=== PATIENT | male | born 1960 | race Caucasian/White ===

== ENCOUNTER 2016-09-11 10:19 | Emergency (ER) | payer BC ==
[~2016-09-11] VITALS: Ht 175.3 cm; Wt 86.4 kg
[~2016-09-11 10:19] MED LIST: IMODIUM 2MG CAPS2 MG PO; PRILOSEC 20MG20 MG PO
[2016-09-11 10:21] VITALS: TEMP 98.1
[2016-09-11] MEDS ORDERED: NEURONTIN300 MG/CAP PO (10:24)
[2016-09-11] MEDS ORDERED: NORCO 325 MG-51 TAB PO (11:03)
[2016-09-11 11:34] VITALS: BP 138/89; PULSE 60
== END 2016-09-11 11:38 | disposition home or self-care (01) ==
LOC: COL.ER 10:19
DX: S42.022A Displaced fracture of shaft of left clavicle, initial encounter for closed fracture (principal); Z93.2 Ileostomy status; W01.0XXA Fall on same level from slipping, tripping and stumbling without subsequent striking against object, initial encounter; Y99.0 Civilian activity done for income or pay; Y92.89 Other specified places as the place of occurrence of the external cause

== ENCOUNTER → 2017-02-20 | Outpatient (REF) ==
[~2017-02-20] MED LIST changes: +NEURONTIN300 MG/CAP PO; +NORCO 325 MG-51 TAB PO
== END ==
LOC: ZLAB.WCH 18:12
DX: Z01.89 Encounter for other specified special examinations (principal)
CPT/HCPCS: G0103